=== PATIENT | female | born 1985 | race African-American/Black ===

== ENCOUNTER 2017-09-15 08:45 | Emergency (ER) | payer OTHER, MEDICAID ==
[~2017-09-15] VITALS: Ht 167.6 cm; Wt 57.0 kg
[2017-09-15 08:52] VITALS: BP 118/72; PULSE 88; RESP 16; TEMP 98.4; O2SAT 99
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
[2017-09-15] MEDS ORDERED: IBUPROFEN 600 MG TAB PO ONE (10:15)
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
== END 2017-09-15 11:46 | disposition home or self-care (01) ==
LOC: NEPD 08:45
DX: S39.012A Strain of muscle, fascia and tendon of lower back, initial encounter (principal); V49.59XA Passenger injured in collision with other motor vehicles in traffic accident, initial encounter
CPT/HCPCS: 72100; 84703; 99285